=== PATIENT | male | born 1960 | race Caucasian/White ===

== ENCOUNTER 2025-09-17 01:14 | Emergency (ER) | payer MEDICARE, BC, SELFPAY ==
--- OUTSIDE RECORDS SUMMARY | 2010-07-26 10:00 | XMS_ITS | Continuity of Care Document ---
Author Organization [facility] Address [address] [place] [address] Phone Care Team Providers Care Rice Field Worker Name Role Phone Tarah Palma Unavailable Unavailable Procedures Procedure Date Eye Exam & Treatment Office/outpatient Visit, Est Eye Exam & Treatment Refraction Eye Exam & Treatment Advance Directives Directive Yes / No Effective Date File Name No Information Encounters Encounter Description Practice Location Reason(s) For Visit Diagnoses Date Provider Providers Copied on Encounter [facility], [address] [place] [address] [address], [place], [place], [address], [place] tel:[phone] SEC [facility] No Information Sep-2 8-201 0 Minerva Rascon. [address] [facility] [address] , [address], [place], [place], [facility], [place]. tel:[phone] Office/outpat ient Visit, Est [facility], [address], [place], [place], [address], [place] tel:[phone] SEC [facility] No Information Sep-2 2-200 9 Minerva Rascon. [address] , [address], [place], [place], [facility], . tel:[phone] [facility], [address] [place] [address] [address], [place], [place], [address], [place] tel:[phone] [facility] No Information 8 Minerva Rascon. [address] , [address], [place], [address], . tel:[phone] [facility], [address] [facility], [place], [place], [address], tel:[phone] SEC [facility] No Information 7 Minerva Stanton [address] , [address], [place], [address], [place]. tel:[phone] Family History Family Member Type Diagnosis Age At Onset No Information Payers Payer name Insurance type Covered democrat ID Kristi yipnoreen(s) [facility] FEP BL [id number] Social History Type Description Quantity Date Captured Comments Sex Male Smoking Status No Information Chief Complaint And Reason For Visit No Information Reason For Referral Reason For Referral No Information History Of Present Illness Encounter Date Complaint History Of Prese nt Illness No Information Functional Status Date Functional Assessmen t No Information Instructions Date Instruction Additional Infor mation No Information Assessments Type Assessment Date No Information Patient Care Teams Name Effective Dates (start - stop) Status Members No Information
--- OUTSIDE RECORDS SUMMARY | 2010-07-26 10:00 | XMS_ITS | Continuity of Care Document ---
Author Organization [facility] Address [address] [place] [address] Phone Care Team Providers Care Sterilisation Technician Name Role Phone Tarah Palma Unavailable Unavailable Procedures Procedure Date Eye Exam & Treatment Office/outpatient Visit, Est Eye Exam & Treatment Refraction Eye Exam & Treatment Advance Directives Directive Yes / No Effective Date File Name No Information Encounters Encounter Description Practice Location Reason(s) For Visit Diagnoses Date Provider Providers Copied on Encounter [facility], [address] [place] [address] [address], [place], [place], [address], [place] tel:[phone] SEC [facility] No Information Sep-2 8-201 0 Minerva Rascon. [address] [facility] , [address], [place], [place], [facility], [place]. tel:[phone] Office/outpat ient Visit, Est [facility], [address], [place], [place], [address], [place] tel:[phone] [facility] No Information Sep-2 2-200 9 Minerva Rascon. [address] , [address], [place], [place], [facility], . tel:[phone] [facility], [address] [place] [address] [address], [place], [place], [address], [place] tel:[phone] [facility] No Information 8 Minerva Rascon. [address] , [address], [place], [address], . tel:[phone] [facility], [address] [facility], [place], [place], [address], tel:[phone] [facility] No Information 7 Minerva Stanton [address] [address] , [address], [place], [address], [place]. tel:[phone] Family History Family Member Type Diagnosis Age At Onset No Information Payers Payer name Insurance type Covered libertarian ID Kristi yipnoreen(s) [facility] FEP BL [id number] Social History Type Description Quantity Date Captured [...]
--- OUTSIDE RECORDS SUMMARY | 2010-07-26 10:00 | XMS_ITS | Continuity of Care Document ---
Author Organization [facility] Address [address] [place] [address] Phone Care Team Providers Care Order Builder Loader Name Role Phone Tarah Palma Unavailable Unavailable Procedures Procedure Date Eye Exam & Treatment Office/outpatient Visit, Est Eye Exam & Treatment Refraction Eye Exam & Treatment Advance Directives Directive Yes / No Effective Date File Name No Information Encounters Encounter Description Practice Location Reason(s) For Visit Diagnoses Date Provider Providers Copied on Encounter [facility], [address] [place] [address] [address], [place], [place], [address], [place] tel:[phone] SEC [facility] No Information Sep-2 8-201 0 Minerva Rascon. [address] , [address], [place], [place], [facility], [place]. tel:[phone] Office/outpat ient Visit, Est [facility], [address], [place], [place], [address], [place] tel:[phone] [facility] No Information Sep-2 2-200 9 Minerva Rascon. [address] , [address], [place], [place], [facility], . tel:[phone] [facility], [address] [place] [address] [address], [place], [place], [address], [place] tel:[phone] [facility] No Information 8 Minerva Rascon. [address] , [address], [place], [address], . tel:[phone] [facility] Eye [facility], [address] [facility], [place], [place], [address], tel:[phone] SEC [facility] No Information 7 Minerva Stanton [address] , [address], [place], [address], [place]. tel:[phone] Family History Family Member Type Diagnosis Age At Onset No Information Payers Payer name Insurance type Covered constitution party ID Kristi yipnoreen(s) [facility] FEP BL [id number] Social History Type Description Quantity Date Captured [...]
--- OUTSIDE RECORDS SUMMARY | 2010-07-26 10:00 | XMS_ITS | Continuity of Care Document ---
Author Organization [facility] Address [address] [place] [address] Phone Care Team Providers Care Quality Assurance Advisor Name Role Phone Tarah Palma Unavailable Unavailable Procedures Procedure Date Eye Exam & Treatment Office/outpatient Visit, Est Eye Exam & Treatment Refraction Eye Exam & Treatment Advance Directives Directive Yes / No Effective Date File Name No Information Encounters Encounter Description Practice Location Reason(s) For Visit Diagnoses Date Provider Providers Copied on Encounter [facility], [address] [place] [address] [address], [place], [place], [address], [place] tel:[phone] [facility] No Information Sep-2 8-201 0 Minerva Rascon. [address] [facility] , [address], [place], [place], [facility], [place]. tel:[phone] Office/outpat ient Visit, Est [facility], [address], [place], [place], [address], [place] tel:[phone] [facility] No Information Sep-2 2-200 9 Minerva Rascon. [address] , [address], [place], [place], [facility], . tel:[phone] [facility], [address] [place] [address] [address], [place], [place], [address], [place] tel:[phone] [facility] No Information 8 Minerva Rascon. [address] , [address], [place], [address], . tel:[phone] [facility] Eye [facility], [address] [facility] [address], [place], [place], [address], tel:[phone] [facility] No Information 7 Minerva Stanton [address] [facility] , [address], [place], [address], [place]. tel:[phone] Family History Family Member Type Diagnosis Age At Onset No Information Payers Payer name Insurance type Covered democrat ID Kristi yipnoreen(s) [facility] FEP BL [id number] Social History Type Description Quantity Date Captured [...]
--- OUTSIDE RECORDS SUMMARY | 2010-07-26 10:00 | XMS_ITS | Continuity of Care Document ---
Author Organization [facility] Address [address] [place] [address] Phone Care Team Providers Care Sephora Operations Consultant Name Role Phone Tarah Palma Unavailable Unavailable Procedures Procedure Date Eye Exam & Treatment Office/outpatient Visit, Est Eye Exam & Treatment Refraction Eye Exam & Treatment Advance Directives Directive Yes / No Effective Date File Name No Information Encounters Encounter Description Practice Location Reason(s) For Visit Diagnoses Date Provider Providers Copied on Encounter [facility], [address] [place] [address] [address], [place], [place], [address], [place] tel:[phone] [facility] No Information Sep-2 8-201 0 Minerva Rascon. [address] [facility] , [address], [place], [place], [facility], [place]. tel:[phone] Office/outpat ient Visit, Est [facility], [address], [place], [place], [address], [place] tel:[phone] [facility] No Information Sep-2 2-200 9 Minerva Rascon. [address] , [address], [place], [place], [facility], . tel:[phone] [facility], [address] [place] [address] [address], [place], [place], [address], [place] tel:[phone] [facility] No Information 8 Minerva Rascon. [address] , [address], [place], [address], . tel:[phone] [facility], [address] [facility], [place], [place], [address], tel:[phone] [facility] No Information 7 Minerva Stanton [address] [facility] , [address], [place], [address], [place]. tel:[phone] Family History Family Member Type Diagnosis Age At Onset No Information Payers Payer name Insurance type Covered constitution party ID Kristi yipnoreen(s) [facility] FEP BL [id number] Social History Type Description Quantity Date Captured [...]
--- OUTSIDE RECORDS SUMMARY | 2010-07-26 10:00 | XMS_ITS | Continuity of Care Document ---
Author Organization [facility] Address [address] [place] [address] Phone Care Team Providers Care Bearingizer Name Role Phone Tarah Palma Unavailable Unavailable Procedures Procedure Date Eye Exam & Treatment Office/outpatient Visit, Est Eye Exam & Treatment Refraction Eye Exam & Treatment Advance Directives Directive Yes / No Effective Date File Name No Information Encounters Encounter Description Practice Location Reason(s) For Visit Diagnoses Date Provider Providers Copied on Encounter [facility], [address] [place] [address] [address], [place], [place], [address], [place] tel:[phone] [facility] No Information Sep-2 8-201 0 Minerva Rascon. [address] [facility] , [address], [place], [place], [facility], [place]. tel:[phone] Office/outpat ient Visit, Est [facility], [address], [place], [place], [address], [place] tel:[phone] [facility] No Information Sep-2 2-200 9 Minerva R[address]no. [address] , [address], [place], [place], [facility], . tel:[phone] [facility], [address] [place] [address] [address], [place], [place], [address], [place] tel:[phone] [facility] No Information 8 Minerva Rascon. [address] , [address], [place], [address], . tel:[phone] [facility], [address] [facility], [place], [place], [address], tel:[phone] [facility] No Information 7 Minerva Stanton [address] [facility] [facility] , [address], [place], [address], [place]. tel:[phone] Family History Family Member Type Diagnosis Age At Onset No Information Payers Payer name Insurance type Covered republican ID Kristi yipnoreen(s) [facility] FEP BL [id number] Social History Type Description Quantity Date Captured [...]
--- OUTSIDE RECORDS SUMMARY | 2010-07-26 10:00 | XMS_ITS | Continuity of Care Document ---
Author Organization [facility] Address [address] [place] [address] Phone Care Team Providers Care Rubbing Bed Operator Name Role Phone Tarah Palma Unavailable Unavailable Procedures Procedure Date Eye Exam & Treatment Office/outpatient Visit, Est Eye Exam & Treatment Refraction Eye Exam & Treatment Advance Directives Directive Yes / No Effective Date File Name No Information Encounters Encounter Description Practice Location Reason(s) For Visit Diagnoses Date Provider Providers Copied on Encounter [facility], [address] [place] [address] [address], [place], [place], [address], [place] tel:[phone] [facility] No Information Sep-2 8-201 0 Minerva Rascon. [address] [facility] , [address], [place], [place], [facility], [place]. tel:[phone] Office/outpat ient Visit, Est [facility], [address], [place], [place], [address], [place] tel:[phone] [facility] No Information Sep-2 2-200 9 Minerva Rascon. [address] , [address], [place], [place], [facility], . tel:[phone] [facility], [address] [place] [address] [address], [place], [place], [address], [place] tel:[phone] [facility] No Information 8 Minerva Rascon. [address] , [address], [place], [address], . tel:[phone] [facility], [address] [facility] [address], [place], [place], [address], tel:[phone] [facility] No Information 7 Minerva Stanton [address] [facility] , [address], [place], [address], [place]. tel:[phone] Family History Family Member Type Diagnosis Age At Onset No Information Payers Payer name Insurance type Covered republican ID Kristi yipnoreen(s) [facility] FEP BL [id number] Social History Type Description Quantity Date Captured [...]
--- OUTSIDE RECORDS SUMMARY | 2010-07-26 10:00 | XMS_ITS | Continuity of Care Document ---
Author Organization [facility] Address [address] [place] [address] Phone Care Team Providers Care Education Program Specialist Name Role Phone Tarah Palma Unavailable Unavailable Procedures Procedure Date Eye Exam & Treatment Office/outpatient Visit, Est Eye Exam & Treatment Refraction Eye Exam & Treatment Advance Directives Directive Yes / No Effective Date File Name No Information Encounters Encounter Description Practice Location Reason(s) For Visit Diagnoses Date Provider Providers Copied on Encounter [facility], [address] [place] [address] [address], [place], [place], [address], [place] tel:[phone] SEC [facility] No Information Sep-2 8-201 0 Minerva Rascon. [address] [facility] , [address], [place], [place], [facility], [place]. tel:[phone] Office/outpat ient Visit, Est [facility], [address], [place], [place], [address], [place] tel:[phone] [facility] No Information Sep-2 2-200 9 Minerva Rascon. [address] , [address], [place], [facility], . tel:[phone] [facility], [address] [place] [address] [address], [place], [place], [address], [place] tel:[phone] [facility] No Information 8 Minerva Rascon. [address] , [address], [place], [address], . tel:[phone] [facility], [address] [facility], [place], [place], [address], tel:[phone] [facility] No Information 7 Minerva Stanton [address] [facility] , [address], [place], [address], [place]. tel:[phone] Family History Family Member Type Diagnosis Age At Onset No Information Payers Payer name Insurance type Covered constitution party ID Kristi yipnoreen(s) [facility] FEP BL [id number] Social History Type Description Quantity Date Captured [...]
--- OUTSIDE RECORDS SUMMARY | 2010-07-26 10:00 | XMS_ITS | Continuity of Care Document ---
Author Organization [facility] Address [address] [place] [address] Phone Care Team Providers Care Analytical Technician Name Role Phone Tarah Palma Unavailable Unavailable Procedures Procedure Date Eye Exam & Treatment Office/outpatient Visit, Est Eye Exam & Treatment Refraction Eye Exam & Treatment Advance Directives Directive Yes / No Effective Date File Name No Information Encounters Encounter Description Practice Location Reason(s) For Visit Diagnoses Date Provider Providers Copied on Encounter [facility], [address] [place] [address] [address], [place], [place], [address], [place] tel:[phone] [facility] No Information Sep-2 8-201 0 Minerva Rascon. [address] [facility] , [address], [place], [place], [facility], [place]. tel:[phone] Office/outpat ient Visit, Est [facility], [address], [place], [place], [address], [place] tel:[phone] [facility] No Information Sep-2 2-200 9 Minerva Rascon. [address] , [address], [place], [place], [facility], . tel:[phone] [facility], [address] [place] [address] [address], [place], [place], [address], [place] tel:[phone] [facility] No Information 8 Minerva Rascon. [address] , [address], [place], [address], . tel:[phone] [facility], [address] [facility] [address], [place], [place], [address], tel:[phone] [facility] No Information 7 Minerva Stanton [address] [facility] , [address], [place], [address], [place]. tel:[phone] Family History Family Member Type Diagnosis Age At Onset No Information Payers Payer name Insurance type Covered constitution party ID Kristi yipnoreen(s) [facility] FEP BL [id number] Social History Type Description Quantity Date Captured [...]
--- OUTSIDE RECORDS SUMMARY | 2010-07-26 10:00 | XMS_ITS | Continuity of Care Document ---
Author Organization [facility] Address [address] [place] [address] Phone Care Team Providers Care Asparagus Buncher Name Role Phone Tarah Palma Unavailable Unavailable Procedures Procedure Date Eye Exam & Treatment Office/outpatient Visit, Est Eye Exam & Treatment Refraction Eye Exam & Treatment Advance Directives Directive Yes / No Effective Date File Name No Information Encounters Encounter Description Practice Location Reason(s) For Visit Diagnoses Date Provider Providers Copied on Encounter [facility], [address] [place] [address] [address], [place], [place], [address], [place] tel:[phone] SEC [facility] No Information Sep-2 8-201 0 Minerva Rascon. [address] [facility] , [address], [place], [place], [facility], [place]. tel:[phone] Office/outpat ient Visit, Est [facility], [address], [place], [place], [address], [place] tel:[phone] [facility] No Information Sep-2 2-200 9 Minerva Rascon. [address] , [address], [place], [place], [facility], . tel:[phone] [facility], [address] [place] [address] [address], [place], [place], [address], [place] tel:[phone] [facility] No Information 8 Minerva Rascon. [address] , [address], [place], [address], . tel:[phone] [facility], [address] [facility], [place], [place], [address], tel:[phone] [facility] No Information 7 Minerva Stanton [address] [facility] , [address], [place], [address], [place]. tel:[phone] Family History Family Member Type Diagnosis Age At Onset No Information Payers Payer name Insurance type Covered constitution party ID Kristi yipnoreen(s) [facility] FEP BL [id number] Social History Type Description Quantity Date Captured [...]
--- OUTSIDE RECORDS SUMMARY | 2010-07-26 10:00 | XMS_ITS | Continuity of Care Document ---
Author Organization [facility] Address [address] [place] [address] Phone Care Team Providers Care Recreation Establishment Manager Name Role Phone Tarah Palma Unavailable Unavailable Procedures Procedure Date Eye Exam & Treatment Office/outpatient Visit, Est Eye Exam & Treatment Refraction Eye Exam & Treatment Advance Directives Directive Yes / No Effective Date File Name No Information Encounters Encounter Description Practice Location Reason(s) For Visit Diagnoses Date Provider Providers Copied on Encounter [facility], [address] [place] [address] [address], [place], [place], [id number], [place] tel:[phone] [facility] No Information Sep-2 8-201 0 Minerva Rascon. [address] , [address], [place], [place], [facility], [place]. tel:[phone] Office/outpat ient Visit, Est [facility], [address], [place], [place], [id number], [place] tel:[phone] [facility] No Information Sep-2 2-200 9 Minerva Rascon. [address] , [address], [place], [place], [facility], . tel:[phone] [facility], [address] [place] [address] [address], [place], [place], [id number], [place] tel:[phone] [facility] No Information 8 Minerva Rascon. [address] , [address], [place], [address], . tel:[phone] [facility], [address] [facility] [address] [facility] [address], [place], [place], [id number], tel:[phone] [facility] No Information 7 Minerva Stanton [address] , [address], [place], [address], [place]. tel:[phone] Family History Family Member Type Diagnosis Age At Onset No Information Payers Payer name Insurance type Covered alliance party ID Kristi yipnoreen(s) [facility] FEP BL [id number] Social History Type Description Quantity Date Captured [...]
--- OUTSIDE RECORDS SUMMARY | 2010-07-26 10:00 | XMS_ITS | Continuity of Care Document ---
Author Organization [facility] Address [address] [place] [address] Phone Care Team Providers Care Postal Service Window Clerk Name Role Phone Tarah Palma Unavailable Unavailable Procedures Procedure Date Eye Exam & Treatment Office/outpatient Visit, Est Eye Exam & Treatment Refraction Eye Exam & Treatment Advance Directives Directive Yes / No Effective Date File Name No Information Encounters Encounter Description Practice Location Reason(s) For Visit Diagnoses Date Provider Providers Copied on Encounter [facility], [address] [place] [address] [address], [place], [place], [id number], [place] tel:[phone] [facility] No Information Sep-2 8-201 0 Minerva Rascon. [address] , [address], [place], [place], [facility], [place]. tel:[phone] Office/outpat ient Visit, Est [facility], [address], [place], [place], [id number], [place] tel:[phone] [facility] No Information Sep-2 2-200 9 Minerva Rascon. [address] , [address], [place], [place], [facility], . tel:[phone] [facility], [address] [place] [address] [address], [place], [place], [id number], [place] tel:[phone] [facility] No Information 8 Minerva Rascon. [address] , [address], [place], [address], . tel:[phone] [facility], [address] [facility] [address], [place], [place], [address], tel:[phone] [facility] No Information 7 Minerva Stanton [address] [facility] [address] , [address], [place], [address], [place]. tel:[phone] Family History Family Member Type Diagnosis Age At Onset No Information Payers Payer name Insurance type Covered libertarian ID Kristi yipnoreen(s) [facility] FEP BL [id number] Social History Type Description Quantity Date Captured [...]
[2025-09-17] VITALS (9 sets, daily range): BP systolic 135–159; BP diastolic 70–77; PULSE 54–108; RESP 13–18; TEMP 36.8; O2SAT 95–99
--- NOTE | 2025-09-17 01:15 | ECG_ITS ---
Test Date: 2025-09-17 01:23:19 Measurements Intervals [place]ila Rate: 56 P: 26 CO: 148 QRS: -8 QRSD: 82 T: 56 QT: 412 QTc: 399 Interpretive Statements SINUS BRADYCARDIA NONSPECIFIC T-WAVE ABNORMALITY No previous ECG available for comparison Electronically Signed On 09-17-2025 08:35:59 INSPECTOR COLD WORKING by Cyril Tan M.D.
--- OUTSIDE RECORDS SUMMARY | 2025-09-17 02:10 | XMS_ITS | Clinical Summary ---
Author Organization [facility] Address [address] [place] [address] Care Team Providers Care Flight Attendant Name Role Phone Riky Bailey MD Primary Care Provider Allergies No known active allergies Medications allopurinol (ZYLOPRIM) 300 mg tablet TK 1 T PO QD 1 04/17/20 19 Active lisinopril (PRINIVIL,ZESTR [place]) 20 mg tablet TK 1 T PO QD 0 05/26/20 19 Active pravastatin (PRAVACHOL) 40 mg tablet TK 1 T PO QD FOR CHOLESTEROL 0 05/26/20 19 Active testosterone (TESTIM,VOGELXO ) 50 mg/5 gram (1 %) gel as needed 07/03/20 19 Active aspirin 81 mg enteric coated tablet Take 1 tablet (81 mg total) by mouth daily Active sodium, potassium & mag sulfates (Suprep Bowel Prep Kit) 17.5-3.13-1.6 gram recon solnIndications :Bowel Evacuation MIX AND DRINK INSTRUCTED FOR BOWEL PREP 354 mL 12/16/19 25 Active Additional Information Patient not taking.Reported on 02/09/2025 losartan-hydroC HLOROthiazide (HYZAAR) 50-12.5 mg per tablet losartan-hydroc hlorothiazide 50-12.5 mg tablet 01/02/20 24 Active losartan (COZAAR) 50 mg tablet Take 1 tablet (50 mg total) by mouth daily Active traMADoL (ULTRAM) 50 mg tablet Take 1 tablet (50 mg total) by mouth every 6 (six) hours as needed Active rifAXIMin (Xifaxan) 550 mg tablet Active aspirin 81 mg capsule aspirin 81 mg capsule Active pantoprazole DR (PROTONIX) 40 mg EC tablet Take 1 tablet (40 mg total) by mouth daily Please make office visit f/u for add'l fills. 90 tablet 3 01/27/20 25 026 Active hydrocortisone (ANUSOL-HC) 25 mg suppository Insert 1 suppository (25 mg total) into the rectum daily Take prior to procedure as directed 30 suppository 1 02/10/20 25 026 Active Active Problems Problem Noted Date Diagnosed Date Acute proctitis 02/10/2025 Tubular adenoma 12/16/2024 Screening for colorectal cancer 12/16/2024 LLQ pain 12/04/2023 Gastroesophageal reflux disease without esophagi tis 10/10/2021 Other irritable bowel syndrome 05/13/2020 Small intestinal bacterial overgrowth 05/13/2020 Surgical History Surgery Date Site/Laterality Comments UPPER GASTROINTESTINAL ENDOSCOPY COLONOSCOPY Medical History Medical History Date Comments Hypertension Hyperlipidemia Obesity Irritable bowel syndrome GERD (gastroesophageal reflux disease) Small intestinal bacterial overgrowth (SIBO) Sleep apnea Colon polyp Family History Medical History Relation Name Comments Heart attack Father Hypertension Father Hypertension Mother Colon cancer Mother's Brother Relation Name Status Comments Father Mother Mother's Brother Social History Tobacco Use Types Packs/Day Years Used Date Smoking Tobacco: Never Smokeless Tobacco: Never Tobacco Cessation:Counseling Given: Not Answered AUDIT-C Answer Date Recorded Q1: How often do you have a drink containing alc ohol? Monthly or less 01/23/2025 Q2: How many drinks containi ng alcohol do you have on a typical day when you are drinking? 1 or 2 01/23/2025 Q3: How often do you have si x or more drinks on one occasion? Never 01/23/2025 Personal Safety Answer Date Recorded Have you ever been in or are you currently in a harmful physical or emotional relationship or is someone making you feel afraid or unsafe? 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 Gender Identity Not on file Sexual Orientation Not on file Last Filed Vital Signs Vital Sign Reading Time Taken Comments Blood Pressure 184/90 02/09/2025 9:30 AM CDT Pulse 74 02/09/2025 9:30 AM CDT Temperature 36.8 C (98.3 F) 02/09/2025 9:30 AM CDT Respiratory Rate 35 01/23/2025 12:0 0 PM CDT Oxygen Saturation 98% 02/09/2025 9:30 AM CDT Inhaled Oxygen Concentration - - Weight 120.3 kg (265 lb 3.2 oz) 02/09/2025 9:30 AM CDT Height 188 cm (6' 2) 02/09/2025 9:30 AM CDT Body Mass Index 34.05 02/09/2025 9:30 AM CDT Plan of Treatment Health Maintenance Due Date Last Done Comments Depression Screening 1960 Hepatitis C Screening 1960 Prostate Cancer Screening-PSA 1958 Hepatitis B Screening 1976 Pneumococcal vaccine 65+ (1 of 1 - PCV) 2008 Zoster Vaccine (1 of 2) 2008 Well Visit 65+ 2023 Influenza Vaccine (#1) 2025 Fall Risk Assessment 01/23/2026 01/23/2025 DTaP/Tdap/Td Vaccine (2 - Td or Tdap) 12/07/202706/2018 Colon Cancer Screening-Colonoscopy 01/23/20352024 Colon Cancer Screening-CT Colonography Discontinued Colon Cancer Screening-DNA Stool Discontinued 01/24/20 Colon Cancer Screening-FIT Discontinued 01/23/2025 Colon Cancer Screening-Sigmoidoscopy Discontinued 12/28 Procedures Procedure Name Priority Date/Time Associated Diagnosis Comments COLONOSCOPY 01/23/2025 10:49 AM CDT from Last 3 Months or Most Recently Relevant to Health Maintenance Results * Colonoscopy (01/23/2025 10:49 AM CDT) Anatomical Region Laterality Modality Other Narrative Procedure Note Hayes Montelongo MD - 01/23/2025 10:49 AM CDT ENDOSCOPY LAB Patient Name: Brock Banerjee Procedure Date: 01/23/2025 10:49 AM Date of : 1960 Admit Type: Outpatient Age: 64 Gender: Male Attending MD: Hayes Montelongo M.D. Room: [facility] ENDOSCOPY ROOM 03 Note Status: Finalized Procedure: Colonoscopy Indications: Screening for colon cancer: Family history of colorectal cancer in distant relative(s) 60 orolder, Surveillance: Personal history of adenomatouspolyps on last colonoscopy 5 years ago Providers: Hayes Montelongo M.D., Anisha Donato M.D.(Fellow) Referring MD: Riky Bailey M.D. Medicines: Monitored Anesthesia Care Complications: No immediate complications. Estimated Blood Loss: Estimated blood loss was minimal. Procedure: Pre-Anesthesia Assessment: - Prior to the procedure, a History and Physicalwas performed, and patient medications and allergieswere reviewed. The patient is competent. The risks and benefits of the procedure and the sedation optionsand risks were discussed with the patient. Allquestions were answered and informed consent was obtained. Patient identification and proposed procedure were verified by the physician in the pre-procedurearea. Mental Status Examination: alert and oriented.Airway Examination: normal oropharyngeal airway and neck mobility. Respiratory Examination: clear to auscultation. CV Examination: normal. Prophylactic Antibiotics: The patient does not requireprophylactic antibiotics. Prior Anticoagulants: The patient has taken no anticoagulant or antiplatelet agents. ASA Grade Assessment: II - A patient with mild systemic disease. After reviewing the risks and benefits,the patient was deemed in satisfactory condition to undergo the procedure. The anesthesia plan was touse monitored anesthesia care (MAC). Immediately priorto administration of medications, the patient was re-assessed for adequacy to receive sedatives. The heart rate, respiratory rate, oxygen saturations, blood pressure, adequacy of pulmonary ventilation,and response to care were monitored throughout the procedure. The physical status of the patient was re-assessed after the procedure. The benefits, risks and alternatives of theprocedure and sedation were discussed and informed consentwas obtained. All questions were answered. Please referto the signed informed consent document in the medical record. The scope was passed under direct vision.The [id number] was introduced through the anusand advanced to the cecum, identified by appendiceal orifice and ileocecal valve. The colonoscopy was performed without difficulty. The patient tolerated the procedure well. The quality of the bowel preparation was good. Anatomical landmarks were photographed. Bowel prep was administered using a split dose. Findings: The perianal and digital rectal examinations were normal. Non-bleeding internal hemorrhoids were found during retroflexion. The hemorrhoids were medium-sized. A 3 mm polyp was found in the distal rectum. The polyp was semi-pedunculated. The polyp was removed with a cold snare. Resection and retrieval were complete. Verification of patient identificationfor the specimen was done. Estimated blood loss was minimal. A single localized non-bleeding erosion was found in the distalrectum. Biopsies were taken with a cold forceps for histology. Verificationof patient identification for the specimen was done. Estimated bloodloss was minimal. Friability in the distal 3-4 cm of rectum. Impression: - Non-bleeding internal hemorrhoids. - One 3 mm polyp in the distal rectum, removed witha cold snare. Resected and retrieved. - A single erosion in the distal rectum.Biopsied. Recommendation: - Discharge patient to home. - Resume previous diet. - Continue present medications. - Await pathology results. - Repeat colonoscopy in 5 years for surveillance. - Return to GI office in 6 weeks. - . Attending Participation: I was present and participated during the entire procedure from insertion to removal of the endoscope. Electronically signed by Hayes Montelongo MD Hayes Montelongo M.D. 01/23/2025 11:30:04 AM Anisha Donato M.D. Number of Addenda: 0 Note Initiated On: 01/23/2025 10:49 AM Hayes Montelongo MD ENDOSCOPY PROCEDURES Final Result from Last 3 Months or Most Recently Relevant to Health Maintenance Insurance MEDICARE [facility] MEDICARE [facility] FEDERAL Advance Directives For more information, please contact: [phone] * Full Code (Latest Code Status on File) Date Activated Date Inactivated Comments 01/23/2025 9:46 AM 01/23/2025 4:10 PM Care Teams Flight Attendant Relationship Specialty Start Date End Date Riky Bailey MD [address] [place] [address] PCP - General Internal Medicine 07/08/19
--- OUTSIDE RECORDS SUMMARY | 2025-09-17 02:10 | XMS_ITS | Clinical Summary ---
Author Organization [facility] Address [address] [place] [address] Care Team Providers Care R D Internship Name Role Phone Unavailable Primary Care Provider Unavailabl e Source Comments [facility],non-owned Affiliates and Associated Physician Practices is amultiple site organization consisting of ambulatory clinics and hospital sitesin [place], [place], [place] and [place]. This disclosure is being madepursuant to the Care Everywhere program and may not contain all information available regarding this patient. Last updated 18.[facility] Allergies No known active allergies Medications * Be aware that medications may not be up to date on this document. Alwaysverify current medications with the patient. 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 Gender Identity Not on file Sexual Orientation Not on file Last Filed Vital Signs Vital Sign Reading Time Taken Comments Blood Pressure 120/78 03/17/2019 3:54 PM CDT Pulse 87 03/17/2019 3:54 PM CDT Temperature 37.1 C (98.7 F) 03/17/2019 3:54 PM CDT Respiratory Rate 18 03/17/2019 3:54 PM CDT Oxygen Saturation 95% 03/17/2019 3:54 PM CDT Inhaled Oxygen Concentration - - Weight 115.7 kg (255 lb) 03/17/2019 3:54 PM CDT Height 188 cm (6' 2) 03/17/2019 3:54 PM CDT Body Mass Index 32.74 03/17/2019 3:54 PM CDT Plan of Treatment Health Maintenance Due Date Last Done Comments COLOGUARD (AGES 45-75) - COL ON CA SCREENING 1960 COLON MONITORING 1958 COLONOSCOPY - COLON CA SCREENING 1958 CT COLONOGRAPHY - COLON CA SCREENING 1960 Colorectal Cancer Screening 1958 FIT - COLON CA SCREENING 1958 FLEX SIG - COLON CA SCREENING 1958 LIPID TESTING 1958 HEPATITIS C SCREENING 06/16/1976 DTAP/TDAP/TD VACCINES (1 - Tdap) 1977 PNEUMOCOCCAL VACCINE 50+ (1 of 1 - PCV) 2008 ZOSTER VACCINE (1 of 2) 2008 SCREENING FOR DIABETES 03/17/2019 DEPRESSION SCREENING 10/29/2024 COVID-19 VACCINE (1 - 2024-2 6 season) 2025 INFLUENZA VACCINE (#1) 2025 Respiratory Syncytial Virus (RSV) Vaccine Pt: or over 60 yrs (1 - 1-dose 75+ series) 2033 HEPATITIS B VACCINE Aged Out No longe r eligible based on patient's age to complete this topic HIB VACCINE Aged Out No longer eligi ble based on patient's age to complete this topic HPV VACCINE Aged Out No longer eligi ble based on patient's age to complete this topic MENINGOCOCCAL (Group B) VACC INE SHARED DECISION-MAKING Aged Out No longer eligibl e based on patient's age to complete this topic MENINGOCOCCAL GROUPS A/C/Y/W VACCINE Aged Out No longer eligible b ased on patient's age to complete this topic Insurance GABRIEL
--- OUTSIDE RECORDS SUMMARY | 2025-09-17 02:10 | XMS_ITS | Patient Health Record ---
Author Organization [facility] Address [address] [place], [place] [address] Care Team Providers Care Application Specialist Name Role Phone ENE CORRAL Unavailable [phone] Riky Bailey Unavailable Unavailable Reason For Referral No Information Social History Social History Additional Details Category Social Info Options Details Migrated Social History Migrated Social History Smoking Status : Never smoked , Alcohol intake : , History of tobacco use : Plan Of Treatment No Information Insurance Providers Payer Name Payer Address Payer Phone Subscriber Number Group Number Insured Name Patient Relationship to Insured Coverage Start Date Coverage End Date [facility] ATTN CLAIMS [address] [place] [address] [id number] VIANEY DE LOS SANTOS Self - patient is the insured
--- NOTE | 2025-09-17 02:23 | ED.BACK ---
HPI - Back Pain/Injury General Chief Complaint: Back Pain/Injury Stated Complaint: back pain Time Seen by Provider: 09/17/25 02:16 Source: patient Mode of arrival: ambulatory Limitations: no limitations History of Present Illness HPI Narrative: This is a 65-year-old male with history of hypertension, gout who presents to the ED for back pain. Patient states that for the past week he has been having intermittent left upper back pain that occasionally radiates to his chest. He was taking ibuprofen for this which was helping for the pain. This afternoon, he states that the pain did not improve with his ibuprofen prompting him to come to the ED for further evaluation. Denies shortness of breath, diaphoresis, numbness. Related Data Allergies Allergy/AdvReac Type Severity Reaction Status Date / Time No Known Allergies Allergy Verified 09/17/25 01:14 Review of Systems Review of Systems: Gen.: Denies fevers or chills Eyes: Denies eye pain or visual change ENT: Denies congestion Respiratory: Denies shortness of breath or cough CV: As per HPI GI: Denies abdominal pain nausea, emesis or diarrhea denies burning, urgency, frequency or hematuria Musculoskeletal: Denies back pain or muscle pain Neuro: Denies numbness, tingling, weakness or focal weakness Skin: Denies rash Except as documented, all other systems reviewed and negative Exam Narrative: APPEARANCE: No acute distress, nontoxic, resting in bed EYES: EOMI HEENT: Normocephalic, atraumatic, OMM RESPIRATORY: No respiratory distress Clear to auscultation bilaterally with no rhonchi wheezing or rales. CARDIOVASCULAR: Regular rate and rhythm without murmurs rubs or gallops. ABDOMINAL: Soft, nontender, nondistended, no rebound or guarding MUSCULOSKELETAl: Moves all extremities. No clubbing, cyanosis or edema. Tenderness to palpation over the left mid thoracic paraspinal musculature NEURO: Awake and alert. Following commands, speech normal, no focal deficits SKIN:: Warm, dry. No rashes lesions or abrasions PSYCHIATRIC: Normal affect/mood, Course Vital Signs Vital signs: Vital Signs Temperature 98.2 F 09/17/25 01:20 Pulse Rate 65 09/17/25 01:20 Respiratory Rate 18 09/17/25 01:20 Blood Pressure 149/70 H 09/17/25 01:20 Pulse Oximetry 96 09/17/25 01:20 Oxygen Delivery Room Air 09/17/25 01:20 Temperature 98.2 F 09/17/25 01:20 Pulse Rate 71 09/17/25 03:46 Respiratory Rate 16 09/17/25 03:46 Blood Pressure 145/77 H 09/17/25 03:46 Pulse Oximetry 99 09/17/25 03:46 Oxygen Delivery Room Air 09/17/25 01:20 MDM - Back Pain/Injury MDM Narrative Medical decision making narrative: 65-year-old male Presenting for left upper back pain. On initial evaluation patient was in no acute distress afebrile, hemodynamic stable. Differentials include but are not limited to: ACS, PE, PNA, bronchitis, costochondritis, pleurisy, viral syndrome, GERD Notable exam findings: Mild tenderness palpation to the left mid thoracic paraspinal musculature I personally reviewed the patient's lab result. Notable lab findings: CBC and CMP without significant abnormalities. Troponin within normal limits. I personally reviewed the patient's EKGs: 09/17/2025 at 1:23 a.m.: Sinus bradycardia rate of 56, normal axis, normal intervals, no acute ST or T-wave changes Patient was refusing an x-ray at this time and was only requesting labs for clearance of ACS. Patient's EKGs and labs are without significant high risk changes. Cardiac risk factors reviewed. Patient is felt likely low risk for ACS and reasonable for further risk stratification testing as an outpatient. Pain was not sudden or maximal in onset without tearing or ripping quality. No other signs of symptoms suggest aortic dissection.Patient is felt to be a reasonable candidate for continued evaluation as an outpatient. Patient was deemed appropriate for discharge at this time. Patient was advised follow-up with their PCP in the next week for re-evaluation. Patient was agreeable to this plan. Given strict return precautions. Medical Records Attestation: I reviewed the patient's medical records. Lab Data Attestation: I reviewed the patient's lab results. 09/17/25 02:56 09/17/25 02:56 Labs: Lab Results 09/17/25 Range/Units 02:56 WBC 5.6 (4.5-10.0) K/mm3 RBC 4.40 L (4.6-6.20) M/mm3 Hgb 13.7 L (14.0-18.0) g/dL Hct 40.1 L (42.0-52.0) % MCV 91.1 (80-100) fl MCH 31.1 (26-34) pg MCHC 34.2 (32-36) g/dl RDW 13.3 (11.5-14.5) % Plt Count 204 (150-375) k/mm3 MPV 9.3 (7.4-10.4) fl Immature Gran % (Auto) 0.2 (0-0.5) % Neut % (Auto) 44.3 L (45.5-73.1) % Lymph % (Auto) 40.6 (18.3-44.2) % [place] % (Auto) 10.4 H (2.6-8.5) % Eos % (Auto) 3.6 (0-4.4) % Baso % (Auto) 0.9 (0.2-1.2) % Lymph # (Auto) 2.27 (0.9-3.2) K/mm3 [place] # (Auto) 0.6 (0.1-0.6) K/mm3 Eos # (Auto) 0.2 (0-0.3) K/mm3 Baso # (Auto) 0.1 (0.0-0.1) K/mm3 Abs Immat Gran (auto) 0.01 (0.00-0.031) K/mm3 Absolute Neuts (auto) 2.5 (1.3-6.7) K/mm3 Absolute Nucleated RBC 0.000 (0.0-0.012) K/mm3 Nucleated RBC % 0.0 (0.0-0.2) % Sodium 140 (137-145) mmol/L Potassium 3.9 (3.4-5.0) mmol/L Chloride 104 (98-107) mmol/L Carbon Dioxide 28 (22-30) mmol/L Anion Gap 8 (4-12) mmol/L BUN 18 (9-20) mg/dL Creatinine 0.98 (0.7-1.3) mg/dL Estim Creat Clear Calc 87 ml/min Estimated GFR > 60 (59 - ) Glucose 108 (65-110) mg/dL Calcium 8.6 (8.4-10.2) mg/dL Total Bilirubin 0.9 (0.2-1.3) mg/dL AST 34 (17-59) U/L ALT 34 (6-50) U/L Alkaline Phosphatase 54 (38-126) U/L Troponin I < 0.012 (0.000-0.034) ng/mL Total Protein 7.2 (6.3-8.2) g/dL Albumin 4.2 (3.5-5.1) g/dL Discharge Plan Discharge Clinical Impression: Acute left-sided thoracic back pain Patient Disposition: Home Condition: Stable Instructions: Antibiotic Form, Thoracic Back Strain (ED) Additional Instructions: Lab work and EKG showed no evidence of heart damage at this time. Follow up with your PCP in the next week for reevaluation. Return to the ED for new or worsening symptoms. Patient Language: Frisian Follow-up/Referrals: Leo,Riky Fabian MD [Primary Care Provider]
[2025-09-17 03:02] LABS: Hematocrit 40.1 % (42.0-52.0); Hemoglobin 13.7 g/dL (14.0-18.0); Immature Granulocyte Percent A 0.2 % (0-0.5); Lymphocytes Absolute Auto 2.27 K/mm3 (0.9-3.2); Mean Corpuscular HGB Conc 34.2 g/dl (32-36); Mean Corpuscular Hemoglobin 31.1 pg (26-34); Mean Corpuscular Volume 91.1 fl (80-100); Nucleated Red Blood Cells Absolute Auto 0.000 K/mm3 (0.0-0.012); Nucleated Red Blood Cells Perc 0.0 % (0.0-0.2); Platelet Count Result 204 k/mm3 (150-375); Red Blood Count 4.40 M/mm3 (4.6-6.20); White Blood Count 5.6 K/mm3 (4.5-10.0)
[2025-09-17 03:16] LABS: Alanine Aminotransferase 34 U/L (6-50); Albumin Level 4.2 g/dL (3.5-5.1); Alkaline Phosphatase 54 U/L (38-126); Anion Gap 8 mmol/L (4-12); Aspartate Amino Transferase 34 U/L (17-59); Bilirubin,Total 0.9 mg/dL (0.2-1.3); Blood Urea Nitrogen 18 mg/dL (9-20); Calcium 8.6 mg/dL (8.4-10.2); Carbon Dioxide 28 mmol/L (22-30); Chloride 104 mmol/L (98-107); Estimated CRCL calculation 87 ml/min; Estimated Glomerular Filt Rate > 60; Glucose 108 mg/dL (65-110); Potassium 3.9 mmol/L (3.4-5.0); Sodium 140 mmol/L (137-145); Total Protein 7.2 g/dL (6.3-8.2)
[2025-09-17 03:27] LABS: Troponin I < 0.012 ng/mL (0.000-0.034)
== END 2025-09-17 04:24 | disposition home or self-care (01) ==
PROVIDERS: Emergency Provider Student in an Organized Health Care Education/Training Program; PCP Internal Medicine
DX: M54.6 Pain in thoracic spine (principal); I10 Essential (primary) hypertension; M10.9 Gout, unspecified; R94.31 Abnormal electrocardiogram [ECG] [EKG]; R00.1 Bradycardia, unspecified
CPT/HCPCS: 36415; 80053; 84484; 85025; 93005; 99284